=== PATIENT | female | born 1980 | race African-American/Black ===

== ENCOUNTER 2017-11-07 17:11 | Emergency (ER) | payer OTHER ==
[~2017-11-07] VITALS: Ht 154.9 cm; Wt 90.7 kg
[2017-11-07 17:13] VITALS: BP 148/91
[2017-11-07 17:26] LABS: URINE BILIRUBIN NEGATIVE (Negative); URINE BLOOD TRACE (Negative); URINE CLARITY CLEAR; URINE COLOR YELLOW; URINE GLUCOSE-RANDOM* NEGATIVE (Negative); URINE KETONES NEGATIVE (Negative); URINE NITRITE-REFLEX NEGATIVE (Negative); URINE PROTEIN (DIPSTICK) NEGATIVE (Negative); URINE SPECIFIC GRAVITY <= 1.005 (1.005-1.035); URINE UROBILINOGEN 0.2 E.U./dl (0.2-1.0)
[2017-11-07 17:28] LABS: URINE LEUKOCYTES-REFLEX TRACE (Negative)
[2017-11-07] MEDS ORDERED: PHENAZOPYRIDIN200 M2 PO (18:03)
[2017-11-07] MEDS ORDERED: KEFLEX500 M1 PO (18:03)
[2017-11-08 15:07] LABS: NEISSERIA GONORRHEA-PCR Negative (Negative)
== END 2017-11-07 18:10 | disposition home or self-care (01) ==
LOC: ER 17:11
PROVIDERS: Physician Assistant
DX: N39.0 Urinary tract infection, site not specified (principal)